=== PATIENT | female | born 1970 | race Two or more races ===

== ENCOUNTER 2018-06-03 07:37 | Outpatient (CLI) | payer OTHER ==
--- NOTE | 2018-06-03 14:26 | MRI Report ---
Reason: PAIN IN RIGHT SHOULDER Procedure Date: 06/03/2018 Accession Number: [id number] / [id number] Procedure: MRI - Shoulder RT W/O CPT Code: FULL RESULT: EXAM: RIGHT SHOULDER MRI WITHOUT CONTRAST EXAM DATE: 06/03/2018 09:24 AM. CLINICAL HISTORY: Pain in right shoulder. COMPARISON: None. TECHNIQUE: Multiplanar, multisequence T1-weighted and fluid-sensitive sequences of the shoulder without contrast. Other: None. FINDINGS: Acromioclavicular Region: The acromion is type II. The acromioclavicular joint is unremarkable. The coracoacromial and coracoclavicular ligaments are intact. Minimal subacromial/subdeltoid bursal fluid. Glenohumeral Region: No subluxation. No effusion or loose bodies. Shallow partial-thickness cartilage loss of the central joint. The glenohumeral ligaments and joint capsule are unremarkable. Bone Marrow: No fracture, marrow edema or bone lesions. Labrum: Subtle fluid-filled irregularity at the labral capsular junction posterior superior aspect. Likely normal variant sulcus superior aspect deep to the biceps anchor. Musculature/Rotator Cuff: Minimal supraspinatus and infraspinatus tendinopathy with shallow bursal surface fraying. Teres minor tendon is normal in morphology. Minimal subscapularis tendinopathy with shallow partial-thickness undersurface tear at the superior insertion. No edema or fatty atrophy. Biceps Tendon: The long head of the biceps tendon and biceps miller are intact. Other: The subcutaneous tissues are unremarkable. IMPRESSION: 1. Minimal supraspinatus and infraspinatus tendinopathy with shallow bursal surface fraying. 2. Minimal subscapularis tendinopathy or shallow partial-thickness undersurface tear. 3. Degenerative fraying and possible subtle tear at the labral capsular junction posterior superior aspect. 4. Minimal subacromial-subdeltoid bursitis. RADIA MUSCULOSKELETAL RADIOLOGY SECTION
== END 2018-06-03 07:38 | disposition home or self-care (01) ==
LOC: DI 07:37
PROVIDERS: ATTEND Family Medicine
DX: M75.91 Shoulder lesion, unspecified, right shoulder (principal); M75.51 Bursitis of right shoulder

== ENCOUNTER 2019-12-01 08:45 | Outpatient (CLI) | payer OTHER ==
--- NOTE | 2019-12-01 11:05 | Mammography Report ---
Reason: ROUTINE MAMMO Procedure Date: 12/01/2019 Accession Number: [id number] / [id number] Procedure: MGN - Screening Mammo Dig Bilat CPT Code: Final Report FULL RESULT: EXAM: Screening Mammo Dig Bilat DATE: 12/01/2019 9:08 AM CLINICAL HISTORY: Routine screening TECHNIQUE: (B) - Bilateral CC and MLO views were obtained. COMPARISON: 10/30/2018, 10/21/2017, 10/14/2016, 09/20/2015, 05/25/2014, 05/25/2013 and 05/26/2012 [facility] PARENCHYMAL PATTERN: (D) - The breasts demonstrate heterogeneously dense fibroglandular parenchyma bilaterally. FINDINGS: Left breast: No significant interval change. There are no suspicious masses, calcifications, or areas of distortion. Right breast: Small nodular density 5.5 cm posterior to the nipple CC projection not definitely identified on the lateral projection. Suggest spot compression and true lateral views and possible ultrasound. Otherwise stable right breast. IMPRESSION: Incomplete examination. BI-RADS category 0. Right breast. Negative left breast. RECOMMENDATION: (ADDMU) - Additional views using both Mammography and Ultrasound recommended. Right breast BI-RADS CATEGORY: (0) - Incomplete Examination - need additional evaluation. STANDARD QUALIFYING STATEMENTS: 1. This examination was not reviewed with the aid of Computer-Aided Detection (CAD). 2. A negative or benign imaging report should not preclude biopsy if clinically suspicious findings are present. 3. Dense breasts may obscure an underlying neoplasm. 4. This examination was reviewed without the aid of 3D breast imaging (tomosynthesis).
== END 2019-12-01 08:46 | disposition home or self-care (01) ==
LOC: DI.N 08:45
DX: Z12.31 Encounter for screening mammogram for malignant neoplasm of breast (principal); R92.8 Other abnormal and inconclusive findings on diagnostic imaging of breast
CPT/HCPCS: 77067

== ENCOUNTER 2019-12-13 10:06 | Outpatient (CLI) | payer OTHER ==
--- NOTE | 2019-12-13 12:07 | Mammography Report ---
Reason: ABN MAMMO - RT SPEC VIEWS Procedure Date: 12/13/2019 Accession Number: [id number] / [id number] Procedure: DEBORAH - Diag Special Views Dig RT CPT Code: Final Report FULL RESULT: EXAM: Diag Special Views Dig RT DATE: 12/13/2019 11:06 AM CLINICAL HISTORY: Diagnostic examination. The patient is recalled from screening for a right breast nodular density. TECHNIQUE: (R) - Right right CC, right spot CC, right ML images are obtained. Focused right breast ultrasound was performed. COMPARISON: 12/01/2019 through 05/26/2012. PARENCHYMAL PATTERN: (D) - The breast(s) demonstrate(s) heterogeneously dense fibroglandular parenchyma. FINDINGS: In the right breast at the 1:00 axis about 5 cm from the nipple a partially obscured nodule is confirmed tomographically which measures 0.6 cm and appears isodense and relatively well-circumscribed. The finding is questionably localized by ultrasound where a 0.6 cm architecturally normal-appearing lymph node is observed 5 cm from the nipple at the 1:00 axis with shape and morphology potentially representing the mammographic finding. These findings are probably benign. There are no suspicious calcifications, or areas of distortion. IMPRESSION: Probably Benign. BI-RADS category 3. RECOMMENDATION: (6MOS) - Recommend 6 month follow-up exam. 6 month mammogram, with ultrasound if indicated on mammographic findings. BI-RADS CATEGORY: (3) - Probably Benign. STANDARD QUALIFYING STATEMENTS: 1. This examination was not reviewed with the aid of Computer-Aided Detection (CAD). 2. A negative or benign imaging report should not preclude biopsy if clinically suspicious findings are present. 3. Dense breasts may obscure an underlying neoplasm. 4. This examination was reviewed with the aid of 3D breast imaging (tomosynthesis).
== END 2019-12-13 10:07 | disposition home or self-care (01) ==
LOC: DI 10:06
PROVIDERS: ATTEND Family Medicine
DX: R92.8 Other abnormal and inconclusive findings on diagnostic imaging of breast (principal)
CPT/HCPCS: 76642

== ENCOUNTER 2020-07-31 10:07 | Outpatient (CLI) | payer OTHER ==
--- NOTE | 2020-08-01 15:07 | Ultrasound Report ---
LIMITED ULTRASOUND OF RIGHT BREAST: 07/31/2020 CLINICAL: Patient returns for short term follow-up of a probably benign mass in the right breast. Comparison is made to exams dated: 07/31/2020 mammogram, 12/13/2019 ultrasound, 12/13/2019 mammogram, 12/01/2019 mammogram - [facility], 10/30/2018 mammogram, and 10/21/2017 mammogram - [facility]. Color flow and real-time ultrasound of the right breast 12 o'clock region were performed. Mondragon scale images of the real-time examination were reviewed. There is a benign 0.3 cm oval simple cyst in the right breast at 12 o'clock middle depth 3 cm from th e nipple. This oval simple cyst is anechoic with a well-defined boundary. This correlates with mamm ography findings. Color flow imaging demonstrates that there is no vascularity present. IMPRESSION: BENIGN There is no sonographic evidence of malignancy. The 0.3 cm oval simple cyst in the right breast is benign. A 1 year screening mammogram is recommended. Exam findings were conveyed to the patient. This exam was interpreted at Station ID: [id number]. Electronically Signed By: Tanner Chris M.D. slc/:07/31/2020 11:49:07 Ultrasound BI-RADS: 2 Benign BI-RADS CATEGORY: (2) - 2 RECOMMENDATION: (ANNUAL) - Recommend routine annual screening mammography. [id number] 1 year screening LATERALITY: (B)
--- NOTE | 2020-08-01 15:07 | Mammography Report ---
UNILATERAL RIGHT DIGITAL DIAGNOSTIC MAMMOGRAM 3D/2D: 07/31/2020 CLINICAL: Patient returns for a 6 month follow up of the right breast. Comparison is made to exams dated: 12/13/2019 mammogram, 12/01/2019 mammogram - [facility], 10/30/2018 mammogram, 10/21/2017 mammogram, and 10/14/2016 mammogram - [facility]. The tissue of right breast is heterogeneously dense. This may lower the sensitivity of mammography. There is a stable oval asymmetry with a circumscribed margin in the right breast middle depth central to the nipple seen on the craniocaudal view only. No other significant masses or calcifications are seen in the breast. IMPRESSION: INCOMPLETE: NEEDS ADDITIONAL IMAGING EVALUATION Stable asymmetry in the right breast resembles a cyst or a lymph node and is indeterminate. A targeted ultrasound is recommended and will immediately follow. This exam was interpreted at Station ID: [id number]. NOTE: For mammograms, a report in lay terms will be sent to the patient. Approximately 15% of breast malignancies will not be visualized mammographically. In the management of a palpable breast mass, a negative mammogram must not discourage biopsy of a clinically suspicious lesion. Electronically Signed By: Tanner Chris M.D. slc/:07/31/2020 11:50:15 ACR BI-RADS Category 0: Incomplete [id number] PARENCHYMAL PATTERN: (D) - The breast(s) demonstrate(s) heterogeneously dense fibroglandular nadege medel. BI-RADS CATEGORY: (0) - 0 Ultrasound [id number] Immediate follow-up LATERALITY: (B)
== END 2020-07-31 10:08 | disposition home or self-care (01) ==
LOC: DI 10:07
PROVIDERS: ATTEND Family Medicine
DX: N60.01 Solitary cyst of right breast (principal)
CPT/HCPCS: 76642